=== PATIENT | male | born 1990 | race Hispanic/Latino ===

== ENCOUNTER 2017-04-07 22:16 | Emergency (ER) | payer BC | END 2017-04-07 22:39 | disposition home or self-care (01) | LOC: EDH 22:16 | DX: Z02.89 Encounter for other administrative examinations (principal); Z72.0 Tobacco use ==

== ENCOUNTER 2019-01-08 02:22 | Emergency (ER) | payer BC, OTHER | END 2019-01-08 03:12 | disposition home or self-care (01) | LOC: EDH 02:22 | DX: F43.0 Acute stress reaction (principal); R00.2 Palpitations; F41.9 Anxiety disorder, unspecified | CPT/HCPCS: 93005 ==

== ENCOUNTER 2019-03-19 00:24 | Emergency (ER) | payer SELFPAY ==
[2019-03-19] MEDS ORDERED: LIDOCAINE 1%-EPI 1:100,000 20 ML VIAL IJ ONE (00:45)
== END 2019-03-19 01:22 | disposition home or self-care (01) ==
LOC: EDH 00:24
DX: L02.213 Cutaneous abscess of chest wall (principal); Z90.49 Acquired absence of other specified parts of digestive tract
CPT/HCPCS: 10060; 82948; 99283; J3490

== ENCOUNTER 2020-02-29 18:36 | Inpatient (IN) | payer OTHER ==
[~2020-02-29] VITALS: Ht 186.7 cm; Wt 122.5 kg
[2020-02-29 18:58] LABS: BASOPHILS % (AUTO) 0.6 % (0.0-5.0); EOSINOPHILS % (AUTO) 0.4 % (0.0-8.0); HEMATOCRIT 51.6 % (42-54); LYMPHOCYTES % (AUTO) 25.4 % (21.0-51.0); MEAN CORPUSCULAR HEMOGLOBIN 30.9 pg (27.0-33.0); MEAN CORPUSCULAR HGB CONC 34.9 g/dL (32.0-36.0); MEAN CORPUSCULAR VOLUME 88.5 fL (79-99); MONOCYTES % (AUTO) 7.2 % (3.0-13.0); PLATELET COUNT (AUTO) 313 K/uL (130-400); RED BLOOD CELL COUNT(AUTO) 5.83 MIL/uL (4.50-6.20); RED CELL DISTRIBUTION WIDTH 12.3 % (11.0-15.5); WHITE BLOOD COUNT (AUTO) 8.4 K/uL (4.8-10.8)
[2020-02-29 19:13] LABS: CREATININE 1.1 mg/dL (0.5-1.5); POTASSIUM 3.1 mmol/L (3.5-5.1)
[2020-02-29 19:17] LABS: ALBUMIN 4.5 g/dL (3.5-5.0); TOTAL PROTEIN, SERUM 8.2 g/dL (6.0-8.3)
[2020-02-29 19:18] LABS: INR 0.98 (0.85-1.15); PARTIAL THROMBOPLASTIN TIME 25.7 SEC (26.3-35.5); PROTHROMBIN TIME 10.6 SEC (9.6-11.6)
[2020-02-29] MEDS ORDERED: LORAZEPAM 2 MG/ML 1 ML VIAL ONE ×4 (20:04→21:41)
[2020-02-29 20:07] LABS: APPEARANCE,URINE Clear (CLEAR); BILIRUBIN,URINE Small (NEGATIVE); COLOR,URINE Dark Yellow (YELLOW); GLUCOSE, URINE (UA) 250 mg/dL (NEGATIVE); KETONES,URINE 40 mg/dL (NEGATIVE); LEUKOCYTE ESTERASE ,URINE Small (NEGATIVE); NITRATE,URINE Negative (NEGATIVE); OCCULT BLOOD,URINE Negative (NEGATIVE); PROTEIN,URINE POS 1+ mg/dL (NEGATIVE)
[2020-02-29 20:12] LABS: RBC,URINE 0-1 /HPF (0-1)
[2020-02-29 20:13] LABS: BACTERIA,URINE Few /HPF (None Seen); MUCUS,URINE Moderate LPF (None Seen); SQUAMOUS EPITHELIAL CELL,UR Rare /HPF (0-2)
[2020-02-29 20:25] LABS: AMPHET/METH SCREEN,URINE POSITIVE (NEGATIVE); BARBITURATE SCREEN, URINE NEGATIVE (NEGATIVE); BENZODIAZEPINES SCREEN,URINE POSITIVE (NEGATIVE); CANNABINOID SCREEN,URINE POSITIVE (NEGATIVE); COCAINE SCREEN,URINE POSITIVE (NEGATIVE); OPIATE SCREEN,URINE NEGATIVE (NEGATIVE); PHENCYCLIDINE SCREEN,URINE NEGATIVE (NEGATIVE)
[2020-02-29] MEDS ORDERED: POTASSIUM CHLORIDE 10MEQ/100ML 100 ML IV PRN (23:00)
[2020-02-29] MEDS ORDERED: LIDOCAINE HCL-MPF 1% 2ML VIAL IV PRN (23:00)
[2020-02-29] MEDS ORDERED: HYDRALAZINE HCL 20 MG/ML VIAL IV PRN (23:00)
[2020-02-29] MEDS ORDERED: ONDANSETRON HCL 4 MG/2 ML VIAL IV PRN (23:00)
[2020-02-29] MEDS ORDERED: ZIPRASIDONE MESYLATE 20 MG/VIAL IM SCH (23:00)
[2020-02-29] MEDS ORDERED: LACTULOSE 20 GM/30 ML UDCUP PO PRN (23:00)
[2020-02-29] MEDS ORDERED: POTASSIUM CHLORIDE 20 MEQ ERTAB PO PRN (23:00)
[2020-02-29] MEDS ORDERED: ACETAMINOPHEN 325 MG TAB PO PRN ×2 (23:00)
[2020-02-29] MEDS ORDERED: POTASSIUM CHLORIDE 10% ELIXIR 20 MEQ/15 ML UDCUP PO PRN (23:00)
[2020-02-29] MEDS ORDERED: SODIUM CHLORIDE 0.9% 1000ML 1,000 ML IV SCH (23:00)
[2020-02-29] MEDS ORDERED: ZIPRASIDONE MESYLATE 20 MG/VIAL IM ONE (23:10)
[2020-03-01] MEDS ORDERED: SODIUM CHLORIDE 0.9% 1000ML 1,000 ML IV ONE (04:20)
[2020-03-01 06:38] LABS: BASOPHILS % (AUTO) 0.4 % (0.0-5.0); EOSINOPHILS % (AUTO) 1.1 % (0.0-8.0); HEMATOCRIT 49.7 % (42-54); LYMPHOCYTES % (AUTO) 25.7 % (21.0-51.0); MEAN CORPUSCULAR HEMOGLOBIN 31.3 pg (27.0-33.0); MONOCYTES % (AUTO) 11.2 % (3.0-13.0); NEUTROPHILS % (AUTO) 61.4 % (40.0-77.0); PLATELET COUNT (AUTO) 237 K/uL (130-400); RED CELL DISTRIBUTION WIDTH 12.6 % (11.0-15.5); WHITE BLOOD COUNT (AUTO) 5.4 K/uL (4.8-10.8)
[2020-03-01 06:52] LABS: POTASSIUM 3.5 mmol/L (3.5-5.1)
[2020-03-01] MEDS ORDERED: THIAMINE HCL 100 MG, FOLIC ACID 1 MG, M.V.I. IV [ADULT] 10 ML in SODIUM CHLORIDE 0.9% 1... IV SCH (08:15)
[2020-03-01] MEDS ORDERED: PHARMACY COMMUNICATION MISC PRN (08:15)
[2020-03-01] MEDS ORDERED: LORAZEPAM 2 MG/ML 1 ML VIAL IVP PRN ×2 (08:15)
[2020-03-01] MEDS ORDERED: CHLORDIAZEPOXIDE HCL 25 MG CAP PO PRN ×2 (08:15)
[2020-03-01] MEDS ORDERED: FOLIC ACID 1 MG TABLET PO SCH ×2 (09:00)
[2020-03-01] MEDS ORDERED: FAMOTIDINE 20MG TAB 20 MG TAB PO SCH (09:00)
[2020-03-01] MEDS ORDERED: THIAMINE HCL 100 MG/ML 2ML VIAL IM SCH (09:00)
[2020-03-01] MEDS ORDERED: MULTIVITAMIN TABLET PO SCH ×2 (09:00)
[2020-03-01] MEDS ORDERED: ENOXAPARIN SODIUM 40 MG/0.4 ML SYRINGE SQ SCH (09:00)
[2020-03-01] MEDS ORDERED: THIAMINE HCL 100 MG/ML 2ML VIAL IV SCH (09:00)
[2020-03-01 09:15] LABS: PHOSPHORUS 4.7 mg/dL (2.5-4.9)
[2020-03-01 10:28] VITALS: BP 148/71
[2020-03-01 12:07] VITALS: BP 148/71
--- NOTE | 2020-03-01 15:37 | NUR ---
PATO NOTE/IA UNABLE TO MET WITH PATIENT, NEXT OF KIN CALLED, [facility]. PER FATHER, PATIENT LIVES WITH PARENTS AND ADULT BROTHER, IS INDEPENDENT WITH ADLS, NO USE OF DME OR PROVIDER SERVICES AND FEELS SAFE FOR PATIENT TO RETURN HOME ONCE DISCHARGED. Addendum: 03/01/20 at 1543 by ZANE HAIR RN CM Amended: Links added.
--- NOTE | 2020-03-01 16:00 | NUR ---
AMA PATIENTS FATHER IN ROOM. PATIENT APPEARS UPSET AND SAID HE WANTS TO LEAVE HOSPITAL NOW. PATIENTS FATHER TOLD ME AND PATIENT HE WOULD LIKE PATIENT TO STAY FOR HIS SAFETY. PATIENT REPLIED THAT DECIDING TO LEAVE THE HOSPITAL IS HIS DECISION. INFORMED PATIENT OF RISKS OF LEAVING AGAINST MEDICAL ADVICE AND PATIENT VERBALIZED UNDERSTANDING AND SIGNED "AGAINST MEDICAL ADVICE" FORM. DR. ALANA CARTAGENA NOTIFIED OF PATIENT LEAVING AM.
--- NOTE | 2020-03-01 17:00 | NUR ---
SW NOTE: SW unable to meet w/pt due to pt. leaving against medical advice.
== END 2020-03-01 16:15 | disposition left against medical advice (07) | DRG 72 ==
LOC: EDH 18:36 → OBSVTOIN 18:37 → EDHIP 18:37 → 4CH 03-01 09:29
PROVIDERS: ADMIT Family Medicine; ATTEND Family Medicine
DX: G93.41 Metabolic encephalopathy (principal); I10 Essential (primary) hypertension; F17.210 Nicotine dependence, cigarettes, uncomplicated; E87.6 Hypokalemia; F12.10 Cannabis abuse, uncomplicated; F14.10 Cocaine abuse, uncomplicated
CPT/HCPCS: 36415; 70450; 71045; 80048; 80053; 80305; 81001; 83735; 84100; 84443; 84484; 85025; 85610; 85730; 87088; 93005; 99291; G0378; J1650; J2060; J3411; J3486; J3490; J7030

== ENCOUNTER 2020-08-14 13:50 | Emergency (ER) | payer SELFPAY ==
[2020-08-14] MEDS ORDERED: KETOROLAC TROMETHAMINE 30MG/ML ONE (14:38)
[2020-08-14] MEDS ORDERED: CEFTRIAXONE SODIUM 1 GM ONE (14:38)
[2020-08-14] MEDS ORDERED: LIDOCAINE HCL-MPF 1% 2ML VIAL ONE (14:38)
[2020-08-14] MEDS ORDERED: NEOMY SULF/BACITRA/POLYMYXIN B 1 EACH PACKET TP ONE (14:56)
== END 2020-08-14 15:17 | disposition home or self-care (01) ==
LOC: EDH 13:50
DX: S61.215A Laceration without foreign body of left ring finger without damage to nail, initial encounter (principal); F14.10 Cocaine abuse, uncomplicated; F12.10 Cannabis abuse, uncomplicated; F15.10 Other stimulant abuse, uncomplicated; Z72.0 Tobacco use; Z90.49 Acquired absence of other specified parts of digestive tract; X58.XXXA Exposure to other specified factors, initial encounter; Y93.89 Activity, other specified; Y92.89 Other specified places as the place of occurrence of the external cause; Y99.8 Other external cause status
CPT/HCPCS: 73130; 96372 ×2; 99284; J0696; J1885; J3490